=== PATIENT | female | born 1970 | race Caucasian/White ===

== ENCOUNTER 2020-08-24 12:19 | Emergency (ER) | payer BC ==
[2020-08-24] MEDS ORDERED: Acetaminophen/HYDROcodone 325-5 MG Tab PO ONE (12:20)
[2020-08-24] MEDS ORDERED: HYDROmorphone 2 MG/ML SDV IM ONE (12:55)
[2020-08-24] MEDS ORDERED: Ondansetron 4 MG/2 ML SDV IM ONE (12:55)
--- NOTE | 2020-08-24 13:02 | EDM.PDOC ---
ED HPI GENERAL MEDICAL PROBLEM - General Chief Complaint: Back Pain or Injury Stated Complaint: BACK PAIN Time Seen by Provider: 08/24/20 12:56 Source of Information: Reports: Patient History Limitations: Reports: No Limitations - History of Present Illness INITIAL COMMENTS - FREE TEXT/NARRATIVE: Presents with worsening low back pain that radiates to hips bilaterally x 3 weeks. No relief with Meloxicam, Tramadol, and chiropractor adjustments. Denies numbness/tingling, or loss of bowel or bladder control. Denies injury or prior h/o chronic back pain. Duration: Week(s): (3) Location: Reports: Back Quality: Reports: Ache Severity: Moderate Worsens with: Reports: Movement Associated Symptoms: Denies: Nausea/Vomiting Lower Back Pain Score (Numeric/FACES): 10 - Related Data Allergies Allergy/AdvReac Type Severity Reaction Status Date / Time prednisone Allergy Numbness Verified 08/24/20 12:38 Home Meds: Home Meds Acetaminophen/HYDROcodone [Sullivan 325-5 MG] 1 - 2 tab PO Q6H PRN #16 tab 08/24/20 [Rx] Baclofen 10 mg PO TID PRN #30 tablet 08/24/20 [Rx] Past Medical History Endocrine/Metabolic History: Reports: Other (See Below) (morbid obesity) ED ROS GENERAL - Review of Systems Review Of Systems: Comprehensive ROS is negative, except as noted in HPI. ED EXAM,LOWER BACK PAIN/INJURY - Physical Exam Exam: See Below Exam Limited By: No Limitations General Appearance: Alert, WD/WN, No Apparent Distress Throat/Mouth: No Airway Compromise Head: Atraumatic, Normocephalic Neck: Full Range of Motion Respiratory/Chest: No Respiratory Distress, Lungs Clear, Normal Breath Sounds Cardiovascular: Regular Rate, Rhythm, No Murmur GI/Abdominal: Soft, Non-Tender, No Distention Extremities: Normal Range of Motion Neurological: Alert, Normal Mood/Affect, No Motor/Sensory Deficits Psychiatric: Normal Affect, Normal Mood Skin Exam: Warm, Dry, Intact Course - Vital Signs Last Recorded V/S: Last Vital Signs Temp 36.7 C 08/24/20 12:19 Pulse 86 08/24/20 12:19 Resp 18 08/24/20 12:19 BP 138/88 08/24/20 12:19 Pulse Ox 99 08/24/20 12:19 - Orders/Labs/Meds Orders: Active Orders 24 hr Category Date Time Status Lumbar Spine wo Cont [CT] Stat Exams 08/24/20 12:56 Taken Labs: Laboratory Tests 08/24/20 Range/Units 14:13 Urine Color Yellow (YELLOW) Urine Appearance Clear (CLEAR) Urine pH 7.0 H (5.0-6.5) Ur Specific [place] 1.010 (1.010-1.025) Urine Protein Negative (NEGATIVE) mg/dL Urine Glucose (UA) Normal (NORMAL) mg/dL Urine Ketones Negative (NEGATIVE) mg/dL Urine Occult Blood Negative (NEGATIVE) Urine Nitrite Negative (NEGATIVE) Urine Bilirubin Negative (NEGATIVE) Urine Urobilinogen Normal (NEGATIVE) mg/dL Ur Leukocyte Esterase Negative (NEGATIVE) Urine RBC 0-5 (0-5) Urine WBC 0-5 (0-5) Ur Squamous Epith Cells Few H (NS,R,O) Urine Bacteria Few H (NS) Urine Mucus Few H (NS) Meds: Medications Discontinued Medications Generic Name Dose Route Start Last Admin Trade Name Freq PRN Reason Stop Dose Admin Hydromorphone HCl 1 mg 08/24/20 12:55 08/24/20 13:25 Dilaudid IM 08/24/20 12:56 1 mg ONETIME ONE Administration Ondansetron HCl 4 mg 08/24/20 12:55 08/24/20 13:20 Zofran IM 08/24/20 12:56 4 mg ONETIME ONE Administration - Radiology Interpretation Free Text/Narrative:: CT L-spine s/ contrast: Impression: 1. No convincing radiographic evidence of acute osseous injury. 2. Mild scattered degenerative changes of the lumbar spine. No significant spinal canal stenosis or neural foramina narrowing. Dictated by Marcos Varela MD @ Aug 24 2020 2:29PM - Re-Assessments/Exams Free Text/Narrative Re-Assessment/Exam: 08/24/20 14:44 Symptoms improved after Dilaudid 1mg IM. Departure - Departure Time of Disposition: 14:45 Disposition: Home, Self-Care 01 Condition: Good Clinical Impression: Lumbago Qualifiers: Chronicity: acute Back pain laterality: midline Sciatica presence: without sciatica Qualified Code(s): M54.5 - Low back pain - Discharge Information *PRESCRIPTION DRUG MONITORING PROGRAM REVIEWED*: Yes *COPY OF PRESCRIPTION DRUG MONITORING REPORT IN PATIENT IMER: No Prescriptions: Baclofen 10 mg PO TID PRN #30 tablet PRN Reason: Muscle Spasm Acetaminophen/HYDROcodone [Sullivan 325-5 MG] 1 - 2 tab PO Q6H PRN #16 tab PRN Reason: Pain Instructions: Acute Back Pain, Adult Referrals: Stacie Campoverde NP [Primary Care Provider] - 2 Days Forms: ED Department Discharge Additional Instructions: Fill the prescriptions for Sullivan and Baclofen at [facility] in [place] and take as directed. You may also take the Meloxicam. Discontinue the Tramadol. Do not take Acetaminophen containing medications while taking Sullivan. Rest. Follow up with your primary physician in 2-3 days. Return to the ER as needed. Sepsis Event Note (ED) - Evaluation Sepsis Screening Result: No Definite Risk - Focused Exam Vital Signs: Vital Signs Temp Pulse Resp BP Pulse Ox 08/24/20 12:19 36.7 C 86 18 138/88 99 - My Orders Last 24 Hours: My Active Orders 08/24/20 12:56 Lumbar Spine wo Cont [CT] Stat - Assessment/Plan Last 24 Hours: My Active Orders 08/24/20 12:56 Lumbar Spine wo Cont [CT] Stat
[2020-08-24] MEDS ORDERED: Baclofen 10 MG Tab PO ONE (14:48)
== END 2020-08-24 15:05 | disposition home or self-care (01) ==
LOC: FB.ED 12:19
DX: M54.5 Low back pain (principal); E66.01 Morbid (severe) obesity due to excess calories; Z68.41 Body mass index [BMI] 40.0-44.9, adult; Z88.8 Allergy status to other drugs, medicaments and biological substances
CPT/HCPCS: 72131; 81001; 96372; 99284-25; A9270-GY; J1170; J2405

== ENCOUNTER 2021-12-12 12:32 | Emergency (ER) | payer BC ==
[2021-12-12] MEDS: Ondansetron 4 MG Tab.DIS PO STA (13:25)
[2021-12-12] MEDS: HYDROmorphone 2 MG/ML SDV IM STA (13:25)
== END 2021-12-12 14:15 | disposition home or self-care (01) ==
LOC: FB.ED 12:32
DX: M51.16 Intervertebral disc disorders with radiculopathy, lumbar region (principal); Z88.5 Allergy status to narcotic agent; Z88.8 Allergy status to other drugs, medicaments and biological substances
CPT/HCPCS: 96372; 99283; J1170; Q0162

== ENCOUNTER 2021-12-13 15:37 | Emergency (ER) | payer BC ==
[2021-12-13] MEDS ORDERED: HYDROmorphone 2 MG/ML SDV IM STA (16:13)
[2021-12-13] MEDS ORDERED: Ondansetron 4 MG Tab.DIS PO ONE (16:13)
== END 2021-12-13 16:54 | disposition home or self-care (01) ==
LOC: FB.ED 15:37
DX: M51.36 Other intervertebral disc degeneration, lumbar region (principal); Z88.5 Allergy status to narcotic agent; Z88.8 Allergy status to other drugs, medicaments and biological substances; Z79.899 Other long term (current) drug therapy
CPT/HCPCS: 96372; 99283; J1170; Q0162; 99282